=== PATIENT | female | born 1945 | race Caucasian/White ===

== ENCOUNTER → 2016-11-12 | Outpatient (CLI) | payer MEDICARE ==
[~2016-11-12] VITALS: Ht 162.6 cm; Wt 83.9 kg
[~2016-11-12] MED LIST: ALLO100T PO; ASPI-482 PO; ATOR40TA59 PO; CHOL10003 PO; GABA-586 PO; HYDR-2666 PO; LEVO50TA5 PO; LEVO75TA PO; LISI1TAB5 PO; OMEG100021 PO; ONDA4TAB10 SL; PRAV20TA2 PO; UBID50CA25 PO; UBID50TA PO
[2016-11-12 13:18] VITALS: BP 131/73
--- NOTE | 2016-11-12 14:55 | RAD ---
EXAM: Sonographic guided left breast biopsy; left breast biopsy clip placement; left breast postbiopsy mammogram. HISTORY: 71-year-old female presents for sonographic guided biopsy of a 5 mm hypoechoic lesion within the left breast demonstrated on a sonogram dated 10/11/2016. TECHNIQUE: The risks of the procedure were discussed with the patient and written and verbal consent was obtained. Timeout was performed. Sonographic imaging of the left breast was performed and the lesion of concern at the 7:00 position was identified. The skin overlying this region was sterilely prepped, draped and infiltrated with 1% lidocaine. Multiple core samples were obtained through the lesion of concern and submitted to the department of pathology for analysis. A biopsy clip was advanced into the biopsy bed with sonographic guidance. They have compression was maintained over the biopsy site until hemostasis was achieved. A sterile bandage was placed. A postbiopsy mammogram was obtained, confirming the biopsy clip in expected position, with surrounding postbiopsy change. IMPRESSION: Successful sonographic guided biopsy of a lesion within the left breast at the 7:00 position and post biopsy clip placement.
--- NOTE | 2016-11-15 16:08 | PATHOLOGY ---
PATHOLOGY REPORT * * * * * * * * FINAL DIAGNOSIS: Breast tissue, left breast mass needle biopsies: - Stromal fibrosis. See comment. COMMENT: Sections of the left breast mass needle biopsy reveal segments of breast tissue showing hypocellular, loose stromal fibrosis. There are a few small ducts present within the fibrotic stroma. There is no evidence of malignancy. Correlation with mammographic findings is recommended to determine whether the findings in the biopsy are quality control representative of the lesion. (JPM:; d/t: 11/15/16) REPORT ELECTRONICALLY SIGNED BY: Ellis Garland M.D. DATE/TIME: 11/15/2016 15:38 * * * * * * * * GROSS PATHOLOGY: Received in formalin labeled "Concha Hampton and left breast," are several needle cores of yellow-stinson fibrofatty tissue measuring 1.4 x 0.5 x 0.2 cm in aggregate dimensions. The tissue is submitted in its entirety in cassette A1. The cold ischemic time is 5 minutes. The total formalin fixation time is 40 hours and 15 minutes. (TTL; 11/12/2016) INITIAL CPT CODE(S): A; 86385 Professional services [place] [facility] [place] [address] Technical services performed by [facility] at [address] [place] [address], [place] [address]. SPECIMEN(S) RECEIVED: A.Left breast mass CLINICAL HISTORY: Left breast mass PATIENT: CONCHA HAMPTON /AGE: 3 1945 (Age: 71) PATIENT #: [id number] ALT CASE #: SPECIMEN COLLECTION DATE: 11/12/2016 SPECIMEN RECEIVED DATE: 11/12/2016 [facility] - [address] [place] [address] - PHONE: [phone] * * * END OF REPORT * * *
== END | disposition home or self-care (01) ==
LOC: US 12:44
PROVIDERS: ATTEND Surgery
DX: N63 Unspecified lump in breast (principal)
CPT/HCPCS: 76942; C1713; G0206; 19081

== ENCOUNTER → 2016-11-12 | Outpatient (CLI) | payer MEDICARE ==
[2014-11-25 09:13] VITALS: BP_DIAS 70
[~2016-11-12] MED LIST changes: +CONTRAST GIVEN MC PRN; +IOHEXOL 240 MG/ML 50ML VIAL. PO ONE; +IOHEXOL 300 MG/ML 75 ML VIAL IV ONE
[2016-11-12 15:14] LABS: CREATININE 1.3 mg/dL (0.6-1.0); GFR 40.6
--- NOTE | 2016-11-12 16:32 | RAD ---
CT abdomen and pelvis without IV contrast History: Left lower quadrant pain by 2 months. Comparison: CT abdomen pelvis 01/28/2009. Technique: After administration of oral contrast only, helical CT of the abdomen and pelvis was performed from the lung bases through the ischial tuberosities. Axial, sagittal, and coronal reconstructions were obtained. One or more of the following individualized dose reduction techniques were utilized for the study: Automated exposure control Adjustment of mA and/or kV according to patient's size Use of iterative reconstruction technique. Findings: Evaluation of solid organs is limited by lack of intravenous contrast. Liver, spleen, pancreas, gallbladder, and bilateral adrenal glands are unremarkable. Bilateral kidneys and ureters are free of stone or obstruction. Mild calcified aortic atherosclerosis is seen.. There is no evidence of bowel obstruction. No free air or free fluid is identified in the abdomen or pelvis. Appendix appears within normal limits. Urinary bladder is unremarkable. Uterus is absent. Moderate colonic stool is seen. Impression: No acute abnormality identified in the abdomen or pelvis..
[2016-11-15 16:04] VITALS: BP_SYST 130
== END | disposition home or self-care (01) ==
LOC: CT 08:00
PROVIDERS: ATTEND Family Medicine
DX: R10.32 Left lower quadrant pain (principal); I10 Essential (primary) hypertension
CPT/HCPCS: 36415; 74176; 82565; 84520

== ENCOUNTER 2016-11-15 15:09 | Emergency (ER) | payer MEDICARE ==
[~2016-11-15 15:09] MED LIST changes: -CONTRAST GIVEN MC PRN; -HYDR-2666 PO; -IOHEXOL 240 MG/ML 50ML VIAL. PO ONE; -IOHEXOL 300 MG/ML 75 ML VIAL IV ONE; -ONDA4TAB10 SL
[2016-11-15] MEDS ORDERED: IV NORMAL SALINE 500ML BAG 500 ML IV ONE (16:00)
[2016-11-15] MEDS ORDERED: ONDANSETRON PF 4 MG/2 ML VIAL. IV ONE (16:00)
[2016-11-15] MEDS ORDERED: HYDROMORPHONE 2 MG/ML VIAL. IV PRN (16:00)
[2016-11-15 16:04] VITALS: BP 130/70
[2016-11-15 16:13] LABS: BASO % 0 % (0-3); EOS % 0 % (0-3); HEMATOCRIT 43.5 % (36.0-47.0); HEMOGLOBIN 14.5 g/dL (12.0-15.5); LYMPH # 0.8 x10^3/uL (1.0-4.8); LYMPH % 9 % (24-48); MEAN CORPUSCULAR HEMOGLOBIN 31 pg (25-35); MEAN CORPUSCULAR HGB CONC 33 g/dL (31-37); MEAN CORPUSCULAR VOLUME 94 fL (79-100); MONO % 5 % (0-9); NEUT % 86 % (31-73); PLATELET COUNT 299 x10^3/uL (140-400); RED BLOOD COUNT 4.62 x10^6/uL (3.50-5.40); RED CELL DISTRIBUTION WIDTH 12.7 % (11.5-14.5); WHITE BLOOD COUNT 8.6 x10^3/uL (4.0-11.0)
[2016-11-15 16:20] LABS: BILIRUBIN,URINE SMALL (NEG); GLUCOSE,URINE NEGATIVE (NEG); NITRITE,URINE NEGATIVE (NEG); PH,URINE 5.5; PROTEIN,URINE NEGATIVE (NEG-TRACE); UROBILINOGEN,URINE 0.2 mg/dL (0.2 mg/dL)
[2016-11-15 16:30] LABS: BACTERIA,URINE FEW /HPF (0-FEW); RBC,URINE OCC /HPF (0-2); SQUAMOUS EPITHELIAL CELL,UR MANY /LPF
[2016-11-15 16:38] LABS: CALCIUM 9.5 mg/dL (8.5-10.1); CREATININE 1.3 mg/dL (0.6-1.0); GFR 40.6; POTASSIUM 3.8 mmol/L (3.5-5.1)
[2016-11-15 16:51] LABS: TOTAL BILIRUBIN 0.9 mg/dL (0.2-1.0); TOTAL PROTEIN 8.1 g/dL (6.4-8.2)
[2016-11-15 17:31] LABS: PLT ESTIMATE ADEQUATE (ADEQUATE)
[2016-11-15] MEDS ORDERED: HYDR-2666 PO (17:57)
[2016-11-15] MEDS ORDERED: ONDA4TAB10 SL (17:57)
--- NOTE | 2016-11-15 17:58 | PHYS DOC ---
Past Medical History Past Medical History: High Cholesterol, Hypertension, Hypothyroid, Other Additional Past Medical Histor: ELEVATED SERUMN CREATININE, IMPAIRED GLUCOSE INTOLERANCE , NEUROPATHY Past Surgical History: Hysterectomy, Other Additional Past Surgical Histo: BREAST BX Alcohol Use: Occasionally Drug Use: None Adult General Chief Complaint Chief Complaint: ABDOMINAL PAIN HPI HPI 71-year-old female presenting to the emergency Department today with lower abdominal pain for two months. The pain is a crampy intermittent and associated with nausea with a few episodes of non-bilious emesis. She reports taking antibiotic without improvement. She recently had a CT of the abdomen and pelvis which was unremarkable. Her pain is nonradiating it is moderate. Review of Systems Review of Systems ros neg for chest pain shortness of breath fevers chills. All other review of systems is negative unless otherwise noted in HPI. Current Medications Current Medications Current Medications Medications (Trade) Dose Ordered Sig/Papa Start Time Stop Time Status Last Admin Dose Admin Hydromorphone HCl (Dilaudid) 0.5 mg PRN Q1HR PRN 11/15/16 16:00 11/15/16 18:32 DC 11/15/16 16:11 0.5 MG Ondansetron HCl (Zofran) 4 mg 1X ONCE 11/15/16 16:00 11/15/16 16:01 DC 11/15/16 16:10 4 MG Sodium Chloride (Iv Sodium Chloride 0.9% 500ml Bag) 500 ml @ 500 mls/hr 1X ONCE 11/15/16 16:00 11/15/16 16:59 DC 11/15/16 16:09 500 MLS/HR Allergies Allergies Allergies Coded Allergies Type Severity Reaction Last Updated Verified ciprofloxacin Allergy Severe Nausea and Vomiting 11/12/16 Yes Physical Exam Physical Exam Constitutional: Well developed, well nourished, no acute distress, non-toxic appearance. HENT: Normocephalic, atraumatic, bilateral external ears normal, oropharynx moist, no oral exudates, nose normal. [] Eyes: PERRLA, EOMI, conjunctiva normal, no discharge. Neck: Normal range of motion, no tenderness, supple, no stridor. [] Cardiovascular:Heart rate regular rhythm, no murmur [] Lungs & Thorax: Bilateral breath sounds clear to auscultation Abdomen: Bowel sounds normal, soft, no tenderness, no masses, no pulsatile masses. negative McBurney's point.negative León sign. Skin: Warm, dry, no erythema, no rash. [] Back: No tenderness, no CVA tenderness. Extremities: No tenderness, no cyanosis, no clubbing, ROM intact, no edema. Neurologic: Alert and oriented X 3, normal motor function, normal sensory function, no focal deficits noted. [] Psychologic: Affect normal, judgement normal, mood normal. [] Current Patient Data Vital Signs Vital Signs Date Time Temp Pulse Resp B/P Pulse Ox O2 Delivery O2 Flow Rate FiO2 11/15/16 16:11 16 96 Room Air 11/15/16 16:04 80 130/70 11/15/16 15:32 98.5 98.5 Lab Values Laboratory Tests Test 11/15/16 16:00 White Blood Count 8.6x10^3/uL (4.0-11.0) Red Blood Count 4.62x10^6/uL (3.50-5.40) Hemoglobin 14.5g/dL (12.0-15.5) Hematocrit 43.5% (36.0-47.0) Mean Corpuscular Volume 94fL (79-100) Mean Corpuscular Hemoglobin 31pg (25-35) Mean Corpuscular Hemoglobin Concent 33g/dL (31-37) Red Cell Distribution Width 12.7% (11.5-14.5) Platelet Count 299x10^3/uL (140-400) Neutrophils (%) (Auto) 86% (31-73) H Lymphocytes (%) (Auto) 9% (24-48) L Monocytes (%) (Auto) 5% (0-9) Eosinophils (%) (Auto) 0% (0-3) Basophils (%) (Auto) 0% (0-3) Neutrophils # (Auto) 7.3x10^3uL (1.8-7.7) Lymphocytes # (Auto) 0.8x10^3/uL (1.0-4.8) L Monocytes # (Auto) 0.4x10^3/uL (0.0-1.1) Eosinophils # (Auto) 0.0x10^3/uL (0.0-0.7) Basophils # (Auto) 0.0x10^3/uL (0.0-0.2) Segmented Neutrophils % 80% (35-66) H Band Neutrophils % 2% (0-9) Lymphocytes % 11% (24-48) L Monocytes % 7% (0-10) Platelet Estimate Adequate (ADEQUATE) Urine Collection Type Unknown Urine Color Dk yellow Urine Clarity Clear Urine pH 5.5 Urine Specific [place] 1.025 Urine Protein Negativemg/dL (NEG-TRACE) Urine Glucose (UA) Negativemg/dL (NEG) Urine Ketones (Stick) Tracemg/dL (NEG) Urine Blood Moderate (NEG) Urine Nitrite Negative (NEG) Urine Bilirubin Small (NEG) Urine Urobilinogen Dipstick 0.2mg/dL (0.2 mg/dL) Urine Leukocyte Esterase Small (NEG) Urine RBC Occ/HPF (0-2) Urine WBC 1-4/HPF (0-4) Urine Squamous Epithelial Cells Many/LPF Urine Bacteria Few/HPF (0-FEW) Urine Hyaline Casts Few/HPF Urine Mucus Marked/LPF Sodium Level 138mmol/L (136-145) Potassium Level 3.8mmol/L (3.5-5.1) Chloride Level 101mmol/L (98-107) Carbon Dioxide Level 26mmol/L (21-32) Anion Gap 11 (6-14) Blood Urea Nitrogen 25mg/dL (7-20) H Creatinine 1.3mg/dL (0.6-1.0) H Estimated GFR (Cockcroft-Gault) 40.6 BUN/Creatinine Ratio 19 (6-20) Glucose Level 140mg/dL (70-99) H Calcium Level 9.5mg/dL (8.5-10.1) Total Bilirubin 0.9mg/dL (0.2-1.0) Aspartate Amino Transferase (AST) 29U/L (15-37) Alanine Aminotransferase (ALT) 37U/L (14-59) Alkaline Phosphatase 58U/L (46-116) Troponin I Quantitative < 0.017ng/mL (0.000-0.055) Total Protein 8.1g/dL (6.4-8.2) Albumin 4.0g/dL (3.4-5.0) Albumin/Globulin Ratio 1.0 (1.0-1.7) Lipase 91U/L (73-393) Laboratory Tests 11/15/16 16:00 Laboratory Tests 11/15/16 16:00 EKG EKG [] Radiology/Procedures Radiology/Procedures [] Course & Med Decision Making Course & Med Decision Making Pertinent Labs and Imaging studies reviewed. (See chart for details) []71-year-old female presenting to the emergency Department today with abdominal pain for two months. On evaluation the patient's vital signs show that she was afebrile with mild increased heart rate. Otherwise mild hypertension. Physical exam showed nontender abdomen.bloodwork obtained. CBC unremarkable.urine analysis not suggestive of infection.urine culture will be sent. Chemistry panel shows elevation in BUN and creatinine similar to when she got her CT scan.troponin lipase were normal. CT scan obtained on the of this month was unremarkable for any pathology. on reevaluation symptoms had improved. The patient was subsequently discharged home to follow up with PCP in 3 days for continuing patient work. Dragon Disclaimer Dragon Disclaimer This electronic medical record was generated, in whole or in part, using a voice recognition dictation system. Departure Departure Impression: Primary Impression: Abdominal pain Disposition: HOME, SELF-CARE Condition: STABLE Referrals: ELIZABETH OSEGUERA MD (PCP) Patient Instructions: Abdominal Pain (Nonspecific) Additional Instructions: Thank you for allowing us to participate in your care today. Followup with your primary care physician in 3 days if your symptoms do not improve. If you do not have a primary care provider you can ask for a list of our primary care providers. Return to the emergency department you have any new or concerning findings. This should be evaluated by the primary care physician and any necessary consulting services for continued management within a few days after discharge. Return to emergency room if you have any new or concerning symptoms including but not limited to fever, chills, nausea, vomiting, intractable pain, any new rashes, chest pain, shortness of air, uncontrolled bleeding, difficulty breathing, and/or vision loss. You may have been prescribed medication that can change in your level of thinking and ability to operate machinery. These medications include hydrocodone and Ativan. Also, Benadryl has been known to do this as well. Be sure to check with your pharmacist and ask if the medications you've prescribed can affect your level of consciousness. I recommend not operating heavy machinery or driving while on medication such as these. Scripts Ondansetron (Zofran Odt)4 Mg Tab.rapdis1 Tab SL PRN Q8HRS PRN NAUSEA #6 TAB Prov:LEONEL PICKETT MD 11/15/16 Hydrocodone Bit/Acetaminophen (Hydrocodone-Apap 5-325 )1 Each Tablet1 Tab PO PRN Q6HRS PRN PAIN #15 TAB Be careful as this medication may cause you to be drowsy or tired. Do not drive on this medication. Prov:LEONEL PICKETT MD 11/15/16 LEONEL PICKETT MD Nov 15, 2016 17:58
--- NOTE | 2016-11-16 06:42 | EKG ---
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
== END 2016-11-15 18:26 | disposition home or self-care (01) ==
LOC: ER 15:09
DX: R10.30 Lower abdominal pain, unspecified (principal); E78.00 Pure hypercholesterolemia, unspecified; E03.9 Hypothyroidism, unspecified; I10 Essential (primary) hypertension; G62.9 Polyneuropathy, unspecified; Z88.1 Allergy status to other antibiotic agents
CPT/HCPCS: 36415; 80053; 81001; 83690; 84484; 85007; 85027; 87086; 93005; 96361; 96374; 96375; 99285; J1170; J2405; J7040

== ENCOUNTER → 2017-10-06 | Outpatient (CLI) | payer MEDICARE ==
[~2017-10-06] MED LIST changes: +HYDR-2758 PO; +ONDA4TAB10 SL
--- NOTE | 2017-10-06 17:31 | KCIC ---
Bilateral digital screening mammograms: Reason for examination: Routine screening. Comparison is made to previous studies dated back to 10/02/2015. Interpretation was made with the benefit of CAD. The skin and nipples show no abnormalities. No abnormal axillary lymph nodes are seen. The breast parenchyma is heterogeneously dense. (Breast density: Category C.) There continues to be a small nodular density which now contains a biopsy clip at the 7:00 B position of the left breast. There are no new dominant masses, suspicious calcifications or architectural distortion. Impression: No evidence of malignancy. Recommend routine screening. Your patient's mammogram demonstrates that she has dense breast tissue (breast density category C or D), which could hide abnormalities, and if she has other risk factors for breast cancer that have been identified, she might benefit from supplemental screening tests that may be suggested by you as her ordering physician. Dense breast tissue, in and of itself, is a relatively common condition. Therefore, this information is not provided to cause undue concern, but rather to raise your awareness and to promote discussion with your patient regarding the presence of other risk factors, in addition to dense breast tissue. Your patient's mammography results will be sent to her. BI-RAD Category 2: Benign. "Our facility is accredited by the [employer] Mammography Program." This patient's information has been entered into a reminder system for the patient to be notified with the results of her examination and a target date for the next mammogram. Electronically signed by: Laura Jimenez MD (10/06/2017 5:28 PM) [facility]
== END | disposition home or self-care (01) ==
LOC: KCIC MAMMO 09:38
PROVIDERS: ATTEND Family Medicine
DX: Z12.31 Encounter for screening mammogram for malignant neoplasm of breast (principal)
CPT/HCPCS: G0202; 77067

== ENCOUNTER → 2018-11-01 | Outpatient (CLI) | payer MEDICARE ==
[~2018-11-01] MED LIST changes: -GABA-586 PO; +GABA300C18 PO; -HYDR-2758 PO; +HYDR-2761 PO
--- NOTE | 2018-11-01 16:44 | KCIC ---
3d digital tomography [bilateral] History: Routine screening Technique: Bilateral 3d digital tomographic views were obtained with Kamcord Taylor and reviewed on a [employer] workstation. In addition, CAD - computer aided detection was utilized. Comparison: October 06, 2017. Findings: Breast Tissue Density D : The breast tissue is predominantly dense. Scattered fibroglandular elements may obscure underlying pathology. There are no suspicious masses, microcalcifications or areas of architectural distortion. Impression: No suspicious findings. BI-RADS Category 1: Negative. Normal interval followup. The patient will receive a letter with the results in the mail. Your mammogram demonstrates that you have dense breast tissue, which could hide abnormalities, and if you have other risk factors for breast cancer that have been identified, you might benefit from supplemental screening tests that may be suggested by your ordering physician. Dense breast tissue, in and of itself, is a relatively common condition. This information is not provided to cause undue concern, but rather to raise your awareness and to promote discussion with your physician regarding the presence of other risk factors, in addition to dense breast tissue. A report of your mammography results will be sent to you and your physician. You should contact your physician if you have any questions or concerns regarding this report. A mammogram does not have 100% sensitivity and therefore a negative imaging study should not delay further work up of a suspicious abnormality. Patient information is entered into the [facility] reminder system using b-datum with a target due date for the next screening mammogram. The patient will receive a reminder. "Our facility is accredited by the [employer] Mammography Program." Electronically signed by: Allen Broderick III, MD (11/01/2018 4:40 PM) [facility]
== END | disposition home or self-care (01) ==
LOC: KCIC MAMMO 14:45
PROVIDERS: ATTEND Family Medicine
DX: Z12.31 Encounter for screening mammogram for malignant neoplasm of breast (principal)
CPT/HCPCS: 77063; 77067

== ENCOUNTER 2019-01-26 19:23 | Emergency (ER) | payer MEDICARE ==
[~2019-01-26] VITALS: Ht 160 cm; Wt 81.6 kg
[2019-01-26 19:45] VITALS: BP 164/79
[2019-01-26] MEDS ORDERED: ACETAMINOPHEN 325 MG TABLET. PO ONE (19:45)
[2019-01-26] MEDS ORDERED: BENZ100C PO (19:55)
[2019-01-26] MEDS ORDERED: AZIT250T6 PO (19:55)
--- NOTE | 2019-01-26 19:56 | PHYS DOC ---
Past Medical History Past Medical History: High Cholesterol, Hypertension, Hypothyroid, Other Additional Past Medical Histor: ELEVATED SERUMN CREATININE, IMPAIRED GLUCOSE INTOLERANCE , NEUROPATHY (SYLVIA MARISCAL APRN) Past Surgical History: Hysterectomy, Other Additional Past Surgical Histo: BREAST BX (SYLVIA MARISCAL APRN) Alcohol Use: Occasionally Drug Use: None (SYLVIA MARISCAL APRN) Adult General Chief Complaint Chief Complaint: Congestion HPI HPI Patient is a 74 year old female who presents with cough, nasal congestion, post nasal drip, left ear pain, shortness of air, chest tightness 9 days. Patient states she has hot and cold but has not ran a fever. Patient states she' s been taking TheraFlu and NyQuil and DayQuil for her symptoms. Patient states she is just not getting better. (SYLVIA MARISCAL APRN) Review of Systems Review of Systems Constitutional: Denies fever or chills [] Eyes: Denies change in visual acuity, redness, or eye pain [] HENT: Denies nasal congestion or sore throat [] Respiratory: Denies cough or shortness of breath [] Cardiovascular: No additional information not addressed in HPI [] GI: Denies abdominal pain, nausea, vomiting, bloody stools or diarrhea [] : Denies dysuria or hematuria [] Musculoskeletal: Denies back pain or joint pain [] Integument: Denies rash or skin lesions [] Neurologic: Denies headache, focal weakness or sensory changes [] Endocrine: Denies polyuria or polydipsia [] All other systems were reviewed and found to be within normal limits, except as documented in this note. (SYLVIA MARISCAL APRN) Current Medications Current Medications Current Medications Medications (Trade) Dose Ordered Sig/Papa Start Time Stop Time Status Last Admin Dose Admin Acetaminophen (Tylenol) 650 mg 1X ONCE 01/26/19 19:45 01/26/19 19:46 DC 01/26/19 19:45 650 MG (NBA FLOR DO) Allergies Allergies Allergies Coded Allergies Type Severity Reaction Last Updated Verified ciprofloxacin Allergy Severe Nausea and Vomiting 11/12/16 Yes (NBA FLOR DO) Physical Exam Physical Exam Constitutional: Well developed, well nourished, no acute distress, non-toxic appearance. [] HENT: Normocephalic, atraumatic, bilateral external ears normal, oropharynx moist, no oral exudates, nose normal. [] Eyes: PERRLA, EOMI, conjunctiva normal, no discharge. [] Neck: Normal range of motion, no tenderness, supple, no stridor. [] Cardiovascular:Heart rate regular rhythm, no murmur [] Lungs & Thorax: Bilateral breath sounds clear to auscultation [] Abdomen: Bowel sounds normal, soft, no tenderness, no masses, no pulsatile masses. [] Skin: Warm, dry, no erythema, no rash. [] Back: No tenderness, no CVA tenderness. [] Extremities: No tenderness, no cyanosis, no clubbing, ROM intact, no edema. [] Neurologic: Alert and oriented X 3, normal motor function, normal sensory function, no focal deficits noted. [] Psychologic: Affect normal, judgement normal, mood normal. [] (SYLVIA MARISCAL APRN) Current Patient Data Vital Signs Vital Signs Date Time Temp Pulse Resp B/P (MAP) Pulse Ox O2 Delivery O2 Flow Rate FiO2 01/26/19 19:45 98.1 91 18 164/79 (107) 98 Room Air 98.1 (NBA FLOR DO) EKG EKG [] (SYLVIA MARISCAL APRN) Radiology/Procedures Radiology/Procedures [] (SYLVIA MARISCAL APRN) Radiology/Procedures PROCEDURE: CHEST PA & LATERAL EXAM: PA and Lateral Views of the Chest DATE: 01/26/2019 7:58 PM INDICATION: ER PATIENT. PRODUCTIVE COUGH WITH NGUYEN SPUTUM, CONGESTION. COMPARISON: 09/19/10 FINDINGS: The heart is not enlarged. Mediastinal and hilar contours are normal. No focal parenchymal airspace opacity. No pleural effusion or pneumothorax. IMPRESSION: 1. No radiographic evidence for acute cardiopulmonary process. Electronically signed by: Jac Jacobs MD (01/26/2019 9:07 PM) [facility] (NBA FLOR DO) Course & Med Decision Making Course & Med Decision Making Patient is a 74 year old female who presents with cough, nasal congestion, post nasal drip, left ear pain, shortness of air, chest tightness 9 days. Patient states she has hot and cold but has not ran a fever. Patient states she' s been taking TheraFlu and NyQuil and DayQuil for her symptoms. Patient states she is just not getting better. When examining the patient's daughter she has postnasal drip with some redness down the bilateral sides of the back of her throat but there is no swelling and no exudates. Bilateral tympanic membranes are boggy and fluid is seen behind the eardrums. All lung lobes are clear to auscultation. Patient speaks in full clear sentences. Alert and oriented. Skin is pink warm and dry. Vital signs within normal limits. Mucous membranes moist. Ambulatory with a steady gait. Patient states she has not taken any Tylenol today I've given her Tylenol. Patient states when she blows her nose it is blood -tinged and thick mucus. Chest x-ray shows no obvious acute findings and is read by Dr. Flor. There was a incidental pulmonary nodule seen and patient is to follow-up with her primary care doctor for follow up. Patient has upper respiratory infection. Patient follow-up with her primary care doctor this coming week. Patient to take medications as prescribed. She can continue taking [id number] medications for her cold symptoms. Patient also try using saline sinus spray or Nasacort for her nasal congestion and may also help. This should help her sinuses from bleeding due to irritation and dryness. (SYLVIA MARISCAL APRN) Dragon Disclaimer Dragon Disclaimer This electronic medical record was generated, in whole or in part, using a voice recognition dictation system. (SYLVIA MARISCAL APRN) Departure Departure Impression: Primary Impression: Upper respiratory infection Disposition: 01 HOME, SELF-CARE Condition: STABLE Referrals: ELIZABETH OSEGUERA MD (PCP) Patient Instructions: Upper Respiratory Infection, Adult Additional Instructions: Follow-up with her primary care doctor this coming week. Patient to take medications as prescribed. Continue taking [id number] medications for cold symptoms. Patient also try using Saline sinus spray or Nasacort for her nasal congestion may also help. This should help her sinuses from bleeding due to irritation and dryness. Scripts Benzonatate (TESSALON PERLE) 100 Mg Capsule 1 CAP PO TID, #30 CAP Prov: SYLVIA MARISCAL APRN 01/26/19 Azithromycin (AZITHROMYCIN TABLET) 250 Mg Tablet 1 PKG PO UD, #6 TAB Prov: SYLVIA MARISCAL APRN 01/26/19 Attending Signature Attending Signature I have reviewed the PA/GLUE SPREADER's note and plan of care. I was available for consultation as needed during the patient's visit in the emergency department. I agree with the clinical impression, plan, and disposition. (NBA FLOR DO) Problem Qualifiers Primary Impression: Upper respiratory infection URI type: unspecified URI Qualified Codes: J06.9 - Acute upper respiratory infection, unspecified SYLVIA MARISCAL APRN Jan 26, 2019 19:56 NBA FLOR DO Jan 27, 2019 02:27
--- NOTE | 2019-01-26 21:10 | RAD ---
EXAM: PA and Lateral Views of the Chest DATE: 01/26/2019 7:58 PM INDICATION: ER PATIENT. PRODUCTIVE COUGH WITH NGUYEN SPUTUM, CONGESTION. COMPARISON: 09/19/10 FINDINGS: The heart is not enlarged. Mediastinal and hilar contours are normal. No focal parenchymal airspace opacity. No pleural effusion or pneumothorax. IMPRESSION: 1. No radiographic evidence for acute cardiopulmonary process. Electronically signed by: Jac Jacobs MD (01/26/2019 9:07 PM) [facility]
== END 2019-01-26 21:00 | disposition home or self-care (01) ==
LOC: ER 19:23
DX: J06.9 Acute upper respiratory infection, unspecified (principal); R07.89 Other chest pain; H92.02 Otalgia, left ear; E78.00 Pure hypercholesterolemia, unspecified; I10 Essential (primary) hypertension; E03.9 Hypothyroidism, unspecified; Z88.1 Allergy status to other antibiotic agents
CPT/HCPCS: 71046; 99283

== ENCOUNTER → 2019-11-05 | Outpatient (CLI) | payer MEDICARE ==
[~2019-11-05] MED LIST changes: +AZIT250T6 PO; +BENZ100C PO; +LISI1TAB19 PO; -LISI1TAB5 PO
--- NOTE | 2019-11-05 18:28 | KCIC ---
Bilateral digital screening mammograms with 3-D tomosynthesis: Reason for examination: Routine screening. Comparison is made to previous studies dated 11/01/2018 and 10/06/2017. Bilateral mammograms in CC and oblique projections were obtained with 2-D imaging and 3-D tomosynthesis imaging on a Siemens Inspiration unit and reviewed on the workstation. Interpretation was made with the benefit of CAD. The skin and nipples show no abnormalities. No abnormal axillary lymph nodes are seen. The breast parenchyma is extremely dense. (Breast density: Category D.) There are no new dominant masses, suspicious calcifications or architectural distortion. Biopsy clip remains present on the left. Impression: No evidence of malignancy. Recommend routine screening. Your patient's mammogram demonstrates that she has dense breast tissue (breast density category C or D), which could hide abnormalities, and if she has other risk factors for breast cancer that have been identified, she might benefit from supplemental screening tests that may be suggested by you as her ordering physician. Dense breast tissue, in and of itself, is a relatively common condition. Therefore, this information is not provided to cause undue concern, but rather to raise your awareness and to promote discussion with your patient regarding the presence of other risk factors, in addition to dense breast tissue. Your patient's mammography results will be sent to her. BI-RAD Category 2: Benign. "Our facility is accredited by the [employer] Mammography [employer]." This patient's information has been entered into a reminder system for the patient to be notified with the results of her examination and a target date for the next mammogram. Electronically signed by: Laura Jimenez MD (11/05/2019 6:25 PM) [id number]
== END | disposition home or self-care (01) ==
LOC: KCIC MAMMO 09:33
PROVIDERS: ATTEND Family Medicine
DX: Z12.31 Encounter for screening mammogram for malignant neoplasm of breast (principal); N64.89 Other specified disorders of breast; Z96.89 Presence of other specified functional implants
CPT/HCPCS: 77063; 77067

== ENCOUNTER → 2020-11-06 | Outpatient (CLI) | payer MEDICARE ==
[~2020-11-06] MED LIST changes: -LEVO75TA PO; +LEVO75TA90 PO; -LISI1TAB19 PO; +LISI1TAB37 PO
--- NOTE | 2020-11-06 15:38 | KCIC ---
Bilateral digital screening mammograms and tomosynthesis Reason for examination: Routine screening. History of benign right breast biopsy. Comparison is made to previous study dated November 05, 2019 and priors Routine CC and MLO digital views obtained. Interpretation was made with the benefit of CAD. The skin and nipples show no abnormalities. No abnormal axillary lymph nodes are seen. The breast par enchyma is extremely dense. (Breast density: Category D.) There are no suspicious masses, suspicious calcifications or architectural distortion. Left lower breast skin lesions at the inframammary fold s table. Left inner lower breast asymmetry associated with a biopsy clip is stable and benign biopsy si te. At the right inner lower breast mid there is a oval subcentimeter circumscribed low-density nodul e stable to prior exams for over 3 years considered benign. Benign calcifications. Impression: Negative mammogram. Recommend routine screening. ?Your patient's mammogram demonstrates that she has dense breast tissue (breast density category C or D), which could hide abnormalities, and if she has other risk factors for breast cancer that have be en identified, she might benefit from supplemental screening tests that may be suggested by you as he r ordering physician. Dense breast tissue, in and of itself, is a relatively common condition. Theref ore, this information is not provided to cause undue concern, but rather to raise your awareness and to promote discussion with your patient regarding the presence of other risk factors, in addition to dense breast tissue. Your patient's mammography results will be sent to her. BI-RAD Category 2: Benign. "Our facility is accredited by the [employer] Mammography [employer]." This patient's information has been entered into a reminder system for the patient to be notified wit h the results of her examination and a target date for the next mammogram. Electronically signed by: Franki Soria MD (11/06/2020 3:36 PM) [email or web address]
== END ==
LOC: KCIC MAMMO 08:46
PROVIDERS: ATTEND Family Medicine
DX: Z12.31 Encounter for screening mammogram for malignant neoplasm of breast (principal)
CPT/HCPCS: 77063; 77067

== ENCOUNTER → 2021-11-09 | Outpatient (CLI) | payer MEDICARE ==
--- NOTE | 2021-11-10 09:10 | KCIC ---
Bilateral digital screening mammograms with 3-D tomosynthesis: Reason for examination: Routine screening. Comparison is made to previous studies dated back to 10/05/2016. Bilateral mammograms in CC and oblique projections were obtained with 2-D imaging and 3-D tomosynthes is imaging on a Siemens Inspiration unit and reviewed on the workstation. Interpretation was made dustin armando the benefit of CAD. The skin and nipples show no abnormalities. No abnormal axillary lymph nodes are seen. The breast par enchyma is extremely dense. (Breast density: Category D.) There continues to be small circumscribed n odule at the 7:00 B position of the left breast with adjacent biopsy clip which is stable. There are no new dominant masses, suspicious calcifications or architectural distortion. Benign calcifications are again seen. Impression: No evidence of malignancy. Recommend routine screening. Your patient's mammogram demonstrates that she has dense breast tissue (breast density category C or D), which could hide abnormalities, and if she has other risk factors for breast cancer that have bee n identified, she might benefit from supplemental screening tests that may be suggested by you as her ordering physician. Dense breast tissue, in and of itself, is a relatively common condition. Therefo re, this information is not provided to cause undue concern, but rather to raise your awareness and t o promote discussion with your patient regarding the presence of other risk factors, in addition to d ense breast tissue. Your patient's mammography results will be sent to her. BI-RAD Category 2: Benign. "Our facility is accredited by the [employer] Mammography Program." This patient's information has been entered into a reminder system for the patient to be notified wit h the results of her examination and a target date for the next mammogram. Electronically signed by: Laura Jimenez MD (11/10/2021 9:08 AM) [email or web address]
== END ==
LOC: KCIC MAMMO 09:42
PROVIDERS: ATTEND Family Medicine
DX: Z12.31 Encounter for screening mammogram for malignant neoplasm of breast (principal)
CPT/HCPCS: 77063; 77067